=== PATIENT | male | born 1975 | race African-American/Black ===

== ENCOUNTER 2018-04-10 10:51 | Emergency (ER) | payer OTHER ==
[~2018-04-10 10:51] MED LIST: Sodium Chloride Irrig Solution 250 ML BOT ONE
[2018-04-10] MEDS ORDERED: Adacel (T-DAP) 0.5 ML VIAL ONE (10:57)
[2018-04-10] MEDS ORDERED: Lidocaine 1% (PF) 30 ML VIAL ONE (11:25)
[2018-04-10] MEDS ORDERED: Bacitracin Zinc 1 Packet ONE (12:13)
== END 2018-04-10 12:10 | disposition home or self-care (01) ==
LOC: MADERS 10:51
DX: S61.215A Laceration without foreign body of left ring finger without damage to nail, initial encounter (principal); W45.8XXA Other foreign body or object entering through skin, initial encounter
CPT/HCPCS: 12002; 90715; J2001

== ENCOUNTER 2024-01-27 21:08 | Emergency (ER) | payer OTHER ==
[2024-01-27 21:56] LABS: #Basophils 0.1 thou/uL (0.0-0.2); #Eosinphils 0.2 thou/uL (0.0-0.7); #Lymphocytes 1.8 thou/uL (1.20-3.40); #Monocytes 0.4 thou/uL (0.11-0.59); %Basophils 1.9 % (0.0-1.0); %Eosinophils 3.6 % (0.0-10.0); %Lymphocytes 32.7 % (21.0-51.0); %Monocytes 7.7 % (0.0-10.0); %Neutrophils 54.1 % (42.0-75.0); Hematocrit 44.5 % (42.0-52.0); Hemoglobin 14.4 g/dL (14.0-18.0); Mean Corpuscular HGB CONC 32.4 g/dL (32.0-36.0); Mean Corpuscular Hemoglobin 30.1 pg (27.0-31.0); Mean Corpuscular Volume 92.9 fl (78.0-98.0); Mean Platelet Volume 8.3 fL (7.4-10.4); Platelet Count 184 10x3/uL (130-400); RBC Distribution Width 11.5 % (11.5-14.5); Red Blood Cell (RBC) Count 4.79 mill/uL (4.70-6.10); White Blood Cell (WBC) Count 5.5 10x3/uL (4.8-10.8)
[2024-01-27 22:09] LABS: ALT (SGPT) 24 U/L (8-55); AST (SGOT) 23 U/L (5-34); Albumin 4.3 g/dL (3.5-5.0); Alkaline Phosphatase 55 U/L (40-110); Anion Gap 15 mmol/L (10-20); BUN (Urea Nitrogen) 20 mg/dL (8.9-20.6); Bilirubin, Total 0.4 mg/dL (0.2-1.2); Calc. Creatinine Clearance 0 mL/min (70-130); Calcium 9.2 mg/dL (7.8-10.44); Carbon Dioxide 24 mmol/L (22-29); Chloride 106 mmol/L (98-107); Estimated GFR 67; Globulin 3.6 g/dL (2.4-3.5); Glucose 111 mg/dL (70-105); Potassium 3.3 mmol/L (3.5-5.1); Protein, Total 7.9 g/dL (6.0-8.3); Sodium 142 mmol/L (136-145)
[2024-01-27 23:57] LABS: Troponin I 0.019 ng/mL (< 0.028)
[2024-01-28] MEDS ORDERED: Amoxicillin/Potassium Clav 875 MG TAB ONE (00:02)
== END 2024-01-28 00:07 | disposition home or self-care (01) ==
LOC: MADERS 21:08
DX: J01.40 Acute pansinusitis, unspecified (principal); R42 Dizziness and giddiness; I10 Essential (primary) hypertension; Z79.899 Other long term (current) drug therapy; Z55.9 Problems related to education and literacy, unspecified
CPT/HCPCS: 36415; 80053; 83880; 84484; 85025; 93005